=== PATIENT | female | born 1970 | race Caucasian/White ===

== ENCOUNTER 2017-03-29 12:41 | Emergency (ER) | payer SELFPAY ==
[~2017-03-29] VITALS: Ht 167.6 cm; Wt 106.2 kg
[~2017-03-29 12:41] MED LIST: ATEN50TA41 PO; CITA40TA12 PO; IBUP800T PO; LISI1TAB3 PO; OMEP20TA62 PO; OXYC-223 PO; PROM25SU34 RC; PROM25VI5 PO
[2017-03-29] MEDS ORDERED: ALBUTEROL/IPRATROPIUM 2.5MG/0.5MG, 3 ML NPPB ONE (14:00)
[2017-03-29] MEDS ORDERED: BENZONATATE 100 MG CAPSULE PO ONE (14:00)
[2017-03-29 15:03] VITALS: BP 128/78
== END 2017-03-29 15:24 | disposition home or self-care (01) ==
LOC: ED 14:06
DX: J20.8 Acute bronchitis due to other specified organisms (principal); I10 Essential (primary) hypertension; J00 Acute nasopharyngitis [common cold]
CPT/HCPCS: 71020; 99284

== ENCOUNTER 2017-04-28 14:21 | Emergency (ER) | payer MEDICAID ==
[~2017-04-28] VITALS: Ht 167.6 cm; Wt 107.5 kg
[2017-04-28] MEDS ORDERED: SODIUM CHLORIDE 0.9% 1,000ML IVBOLUS ONE (15:30)
[2017-04-28] MEDS ORDERED: FAMOTIDINE 20 MG/2 ML IVP ONE (15:30)
[2017-04-28] MEDS ORDERED: ONDANSETRON 2MG/ML, 2ML IVPush ONE (15:30)
[2017-04-28] MEDS ORDERED: SODIUM CHLORIDE FLUSH 10ML SYR IVF ONE (15:30)
[2017-04-28] MEDS ORDERED: ONDANSETRON 2MG/ML, 2ML ONE (15:44)
[2017-04-28] MEDS ORDERED: FAMOTIDINE 20 MG/2 ML ONE (15:45)
[2017-04-28 15:54] LABS: ASPARTATE AMINO TRANSFERASE 81 U/L (15-37); BLOOD UREA NITROGEN 16 mg/dL (7-18)
[2017-04-28 19:14] VITALS: BP 150/92
== END 2017-04-28 19:23 | disposition home or self-care (01) ==
LOC: ED 17:35
DX: R10.13 Epigastric pain (principal); I10 Essential (primary) hypertension; Z90.710 Acquired absence of both cervix and uterus; Z90.49 Acquired absence of other specified parts of digestive tract; Z88.0 Allergy status to penicillin
CPT/HCPCS: 36415; 80053; 83690; 85025; 96361; 96374; 96375; 99285; J2405; J7030; S0028

== ENCOUNTER 2017-12-29 20:50 | Inpatient (IN) | payer MEDICAID ==
[~2017-12-29] VITALS: Ht 167.6 cm; Wt 112.2 kg
[~2017-12-29 20:50] MED LIST changes: +IBUP-1223 PO; -IBUP800T PO; -OXYC-223 PO; +OXYC-306 PO
[2017-12-29] MEDS ORDERED: FURO-93 PO (21:16)
[2017-12-29 21:37] LABS: BASOPHILS # (AUTO) 0.01 x10^3/uL (0-0.1); BASOPHILS % (AUTO) 0 % (0-1); EOSINOPHILS % (AUTO) 3 % (1-7); LYMPHOCYTES # (AUTO) 0.84 x10^3/uL (1-3.4); LYMPHOCYTES % (AUTO) 24 % (22-44); MD NO; MEAN CORPUSCULAR HEMOGLOBIN 32.6 pg (27.0-34.8); MEAN CORPUSCULAR VOLUME 98.6 fL (80-100); MEAN PLATELET VOLUME 8.4 fL (7.4-10.4); MONOCYTES # (AUTO) 0.29 x10^3/uL (0.2-0.8); MONOCYTES % (AUTO) 8 % (2-9); NEUTROPHILS # (AUTO) 2.28 x10^3/uL (1.8-6.8); NEUTROPHILS % (AUTO) 65 % (42-75); PLATELET COUNT 228 x10^3/uL (130-400); RED BLOOD COUNT 4.01 x10^6/uL (3.82-5.3); RED CELL DISTRIBUTION WIDTH 14.3 % (9.6-15.2)
[2017-12-29 21:46] LABS: ALBUMIN 3.4 g/dL (3.4-5.0); ANION GAP 7 mmol/L (5-15); CALCIUM 8.4 mg/dL (8.5-10.1); CHLORIDE 110 mmol/L (98-107); CREATININE 0.84 mg/dL (0.55-1.02)
[2017-12-29] MEDS ORDERED: CLINDAMYCIN PMX 600MG/50ML 50 ML ONE (22:57)
[2017-12-29] MEDS ORDERED: ONDANSETRON 2MG/ML, 2ML IVPush PRN (23:00)
[2017-12-29] MEDS ORDERED: KETOROLAC 30 MG/1 ML IVPush ONE (23:00)
[2017-12-29] MEDS ORDERED: CLINDAMYCIN PMX 600MG/50ML 50 ML IV ONE (23:00)
[2017-12-29] MEDS ORDERED: ONDANSETRON 2MG/ML, 2ML ONE (23:01)
[2017-12-29] MEDS ORDERED: KETOROLAC 30 MG/1 ML ONE (23:01)
[2017-12-29] MEDS ORDERED: BISACODYL 10 MG SUPP PR PRN (23:30)
[2017-12-29] MEDS ORDERED: POLYETHYLENE GLYCOL 17 GM PACKET PO PRN (23:30)
[2017-12-29] MEDS ORDERED: ACETAMINOPHEN 325 MG TABLET PO PRN (23:30)
[2017-12-29 23:53] VITALS: BP 141/88
[2017-12-30] MEDS: OXYcodone IR 5MG TABLET PO PRN ×4 (00:23→20:03)
[2017-12-30] MEDS: SODIUM CHLORIDE FLUSH 10ML SYR IVF SCH ×3 (00:24→20:03)
[2017-12-30] MEDS: HEPARIN 5,000 UNITS/ML, 1ML SQ SCH ×4 (00:24→23:27)
[2017-12-30 04:52] LABS: BASOPHILS # (AUTO) 0.02 x10^3/uL (0-0.1); BASOPHILS % (AUTO) 1 % (0-1); EOSINOPHILS # (AUTO) 0.13 x10^3/uL (0-0.4); EOSINOPHILS % (AUTO) 4 % (1-7); LYMPHOCYTES # (AUTO) 1.05 x10^3/uL (1-3.4); LYMPHOCYTES % (AUTO) 29 % (22-44); MD NO; MEAN CORPUSCULAR HEMOGLOBIN 33.8 pg (27.0-34.8); MEAN CORPUSCULAR HGB CONC 34.2 g/dL (32.4-35.8); MEAN CORPUSCULAR VOLUME 98.9 fL (80-100); MEAN PLATELET VOLUME 8.8 fL (7.4-10.4); MONOCYTES # (AUTO) 0.33 x10^3/uL (0.2-0.8); MONOCYTES % (AUTO) 9 % (2-9); NEUTROPHILS # (AUTO) 2.06 x10^3/uL (1.8-6.8); NEUTROPHILS % (AUTO) 57 % (42-75); PLATELET COUNT 228 x10^3/uL (130-400); RED BLOOD COUNT 3.75 x10^6/uL (3.82-5.3)
[2017-12-30] MEDS: KETOROLAC 30 MG/1 ML IVPush SCH ×4 (05:27→23:28)
[2017-12-30 05:29] LABS: ALANINE AMINOTRANSFERASE 268 U/L (12-78); ALBUMIN 3.2 g/dL (3.4-5.0); ALKALINE PHOSPHATASE 219 U/L (45-117); ANION GAP 5 mmol/L (5-15); BILIRUBIN,TOTAL 0.7 mg/dL (0.2-1.0); CALCIUM 8.1 mg/dL (8.5-10.1); CHLORIDE 109 mmol/L (98-107); CREATININE 0.91 mg/dL (0.55-1.02); TOTAL PROTEIN 6.4 g/dL (6.4-8.2)
[2017-12-30] MEDS: CLINDAMYCIN PMX 600MG/50ML 50 ML IV SCH ×3 (06:32→23:28)
[2017-12-30] MEDS: LISINOPRIL 10 MG TABLET PO SCH (09:00)
[2017-12-30] MEDS: HYDROCHLOROTHIAZIDE 12.5 MG CAPSULE PO SCH (09:03)
[2017-12-30] MEDS: CITALOPRAM 20 MG TABLET PO SCH (09:03)
[2017-12-30] MEDS: FUROSEMIDE 20 MG TABLET PO SCH (09:04)
[2017-12-30] MEDS: SENNA/DOCUSATE TABLET PO SCH (09:04)
[2017-12-30] MEDS: ATENOLOL 50 MG TABLET PO SCH (09:04)
[2017-12-30 09:26] VITALS: BP 129/82
[2017-12-30 14:57] VITALS: BP 102/68
[2017-12-30 18:51] VITALS: BP 121/80
[2017-12-31 02:12] VITALS: BP 117/79
[2017-12-31] MEDS: OXYcodone IR 5MG TABLET PO PRN ×4 (03:47→22:00)
[2017-12-31 04:54] LABS: BASOPHILS # (AUTO) 0.02 x10^3/uL (0-0.1); BASOPHILS % (AUTO) 1 % (0-1); EOSINOPHILS # (AUTO) 0.15 x10^3/uL (0-0.4); EOSINOPHILS % (AUTO) 4 % (1-7); LYMPHOCYTES # (AUTO) 1.31 x10^3/uL (1-3.4); LYMPHOCYTES % (AUTO) 33 % (22-44); MD NO; MEAN CORPUSCULAR HEMOGLOBIN 33.1 pg (27.0-34.8); MEAN CORPUSCULAR HGB CONC 33.4 g/dL (32.4-35.8); MEAN CORPUSCULAR VOLUME 99.1 fL (80-100); MEAN PLATELET VOLUME 8.7 fL (7.4-10.4); MONOCYTES # (AUTO) 0.38 x10^3/uL (0.2-0.8); MONOCYTES % (AUTO) 10 % (2-9); NEUTROPHILS # (AUTO) 2.11 x10^3/uL (1.8-6.8); NEUTROPHILS % (AUTO) 53 % (42-75); PLATELET COUNT 226 x10^3/uL (130-400); RED BLOOD COUNT 3.97 x10^6/uL (3.82-5.3)
[2017-12-31 05:02] LABS: ALBUMIN 3.3 g/dL (3.4-5.0); ANION GAP 8 mmol/L (5-15); CALCIUM 8.4 mg/dL (8.5-10.1); CHLORIDE 105 mmol/L (98-107)
[2017-12-31 05:10] LABS: ALANINE AMINOTRANSFERASE 232 U/L (12-78); ALKALINE PHOSPHATASE 214 U/L (45-117); BILIRUBIN,TOTAL 1.2 mg/dL (0.2-1.0); CREATININE 1.07 mg/dL (0.55-1.02); TOTAL PROTEIN 6.7 g/dL (6.4-8.2)
[2017-12-31 05:37] LABS: HCT (SEDRATE) 39.3 % (34.6-47.8)
[2017-12-31] MEDS: KETOROLAC 30 MG/1 ML IVPush SCH ×4 (05:46→23:00)
[2017-12-31] MEDS: CLINDAMYCIN PMX 600MG/50ML 50 ML IV SCH ×3 (06:36→23:08)
[2017-12-31] MEDS: CITALOPRAM 20 MG TABLET PO SCH (08:04)
[2017-12-31] MEDS: LISINOPRIL 10 MG TABLET PO SCH (08:04)
[2017-12-31] MEDS: FUROSEMIDE 20 MG TABLET PO SCH (08:04)
[2017-12-31] MEDS: SENNA/DOCUSATE TABLET PO SCH (08:04)
[2017-12-31] MEDS: ATENOLOL 50 MG TABLET PO SCH (08:05)
[2017-12-31] MEDS: HYDROCHLOROTHIAZIDE 12.5 MG CAPSULE PO SCH (08:05)
[2017-12-31] MEDS: HEPARIN 5,000 UNITS/ML, 1ML SQ SCH ×3 (08:07→23:08)
[2017-12-31] MEDS: SODIUM CHLORIDE FLUSH 10ML SYR IVF SCH ×3 (08:08→22:00)
[2017-12-31 08:29] VITALS: BP 122/86
[2017-12-31 14:49] VITALS: BP 114/73
[2017-12-31] MEDS: ONDANSETRON 2MG/ML, 2ML IVPush PRN (16:11)
[2017-12-31 19:42] VITALS: BP 103/59
[2018-01-01 01:15] VITALS: BP 120/81
[2018-01-01] MEDS: OXYcodone IR 5MG TABLET PO PRN ×3 (04:37→20:14)
[2018-01-01 05:28] LABS: CHLORIDE 107 mmol/L (98-107)
[2018-01-01 05:35] LABS: ALANINE AMINOTRANSFERASE 174 U/L (12-78); ALBUMIN 3.2 g/dL (3.4-5.0); ALKALINE PHOSPHATASE 185 U/L (45-117); ANION GAP 6 mmol/L (5-15); BILIRUBIN,TOTAL 1.1 mg/dL (0.2-1.0); CALCIUM 8.3 mg/dL (8.5-10.1); CREATININE 1.26 mg/dL (0.55-1.02); TOTAL PROTEIN 6.8 g/dL (6.4-8.2)
[2018-01-01] MEDS: KETOROLAC 30 MG/1 ML IVPush SCH ×3 (06:26→18:35)
[2018-01-01 07:25] VITALS: BP 121/86
[2018-01-01] MEDS: CITALOPRAM 20 MG TABLET PO SCH (08:27)
[2018-01-01] MEDS: SENNA/DOCUSATE TABLET PO SCH (08:27)
[2018-01-01] MEDS: CLINDAMYCIN PMX 600MG/50ML 50 ML IV SCH ×2 (08:28→16:12)
[2018-01-01] MEDS: LISINOPRIL 10 MG TABLET PO SCH (08:28)
[2018-01-01] MEDS: HYDROCHLOROTHIAZIDE 12.5 MG CAPSULE PO SCH (08:28)
[2018-01-01] MEDS: ATENOLOL 50 MG TABLET PO SCH (08:28)
[2018-01-01] MEDS: FUROSEMIDE 20 MG TABLET PO SCH (08:29)
[2018-01-01] MEDS: SODIUM CHLORIDE FLUSH 10ML SYR IVF SCH ×2 (08:29→20:14)
[2018-01-01] MEDS: HEPARIN 5,000 UNITS/ML, 1ML SQ SCH ×2 (11:20→18:39)
[2018-01-01 14:27] VITALS: BP 121/74
[2018-01-01 19:43] VITALS: BP 116/76
[2018-01-02] MEDS: KETOROLAC 30 MG/1 ML IVPush SCH ×4 (00:06→17:45)
[2018-01-02] MEDS: CLINDAMYCIN PMX 600MG/50ML 50 ML IV SCH ×3 (00:07→15:49)
[2018-01-02 01:48] VITALS: BP 110/70
[2018-01-02] MEDS: HEPARIN 5,000 UNITS/ML, 1ML SQ SCH ×3 (02:10→17:44)
[2018-01-02] MEDS: OXYcodone IR 5MG TABLET PO PRN ×4 (02:11→22:05)
[2018-01-02 08:11] VITALS: BP 132/82
[2018-01-02] MEDS: SODIUM CHLORIDE FLUSH 10ML SYR IVF SCH ×2 (08:34→21:00)
[2018-01-02] MEDS: LISINOPRIL 10 MG TABLET PO SCH (08:34)
[2018-01-02] MEDS: CITALOPRAM 20 MG TABLET PO SCH (08:34)
[2018-01-02] MEDS: ATENOLOL 50 MG TABLET PO SCH (08:35)
[2018-01-02] MEDS: SENNA/DOCUSATE TABLET PO SCH (08:35)
[2018-01-02] MEDS: HYDROCHLOROTHIAZIDE 12.5 MG CAPSULE PO SCH (08:35)
[2018-01-02] MEDS: FUROSEMIDE 20 MG TABLET PO SCH (09:17)
[2018-01-02 14:40] VITALS: BP 152/98
[2018-01-02] MEDS: ONDANSETRON 2MG/ML, 2ML IVPush PRN (15:49)
[2018-01-02 19:02] VITALS: BP 124/81
[2018-01-03] MEDS: KETOROLAC 30 MG/1 ML IVPush SCH ×3 (00:13→11:35)
[2018-01-03] MEDS: CLINDAMYCIN PMX 600MG/50ML 50 ML IV SCH ×2 (00:13→09:50)
[2018-01-03 01:19] VITALS: BP 119/77
[2018-01-03] MEDS: HEPARIN 5,000 UNITS/ML, 1ML SQ SCH ×2 (02:26→09:50)
[2018-01-03] MEDS: OXYcodone IR 5MG TABLET PO PRN (06:40)
[2018-01-03 07:41] VITALS: BP 124/87
[2018-01-03] MEDS ORDERED: CITA40TA12 PO (08:03)
[2018-01-03] MEDS ORDERED: CLIN150C14 PO (08:03)
[2018-01-03] MEDS ORDERED: OXYC1TAB7 PO (08:03)
[2018-01-03] MEDS ORDERED: LISI1TAB3 PO (08:03)
[2018-01-03] MEDS ORDERED: FURO-93 PO (08:03)
[2018-01-03] MEDS ORDERED: ATEN50TA41 PO (08:03)
[2018-01-03] MEDS: ATENOLOL 50 MG TABLET PO SCH (09:49)
[2018-01-03] MEDS: SENNA/DOCUSATE TABLET PO SCH (09:49)
[2018-01-03] MEDS: CITALOPRAM 20 MG TABLET PO SCH (09:49)
[2018-01-03] MEDS: FUROSEMIDE 20 MG TABLET PO SCH (09:50)
[2018-01-03] MEDS: LISINOPRIL 10 MG TABLET PO SCH (09:50)
[2018-01-03] MEDS: SODIUM CHLORIDE FLUSH 10ML SYR IVF SCH (09:50)
[2018-01-03] MEDS: HYDROCHLOROTHIAZIDE 12.5 MG CAPSULE PO SCH (09:50)
== END 2018-01-03 13:08 | disposition home or self-care (01) | DRG 603 ==
LOC: ED 21:51 → 3NW 23:41 → EDIP 23:41
PROVIDERS: ADMIT Internal Medicine; ATTEND Internal Medicine
DX: L03.115 Cellulitis of right lower limb (principal); B19.20 Unspecified viral hepatitis C without hepatic coma; F32.9 Major depressive disorder, single episode, unspecified; G89.29 Other chronic pain; I10 Essential (primary) hypertension; Z82.49 Family history of ischemic heart disease and other diseases of the circulatory system; Z82.5 Family history of asthma and other chronic lower respiratory diseases; Z83.3 Family history of diabetes mellitus; Z87.891 Personal history of nicotine dependence; Z88.1 Allergy status to other antibiotic agents; Z90.710 Acquired absence of both cervix and uterus; K46.9 Unspecified abdominal hernia without obstruction or gangrene
CPT/HCPCS: 36415; 80048; 80053; 82040; 85025; 85651; 86140; 86704; 86706; 86708; 86803; 87040; 87340; 99285; J1644; J1885; J2405